=== PATIENT | female | born 1980 | race Caucasian/White ===

== ENCOUNTER 2025-03-08 16:08 | Emergency (ER) | payer SELFPAY ==
[2025-03-08 16:19] VITALS: BP 161/118; PULSE 80; TEMP 36.8; O2SAT 98; BMI 31.6
--- OUTSIDE RECORDS SUMMARY | 2025-03-08 16:21 | XMS_ITS | Clinical Summary ---
Author Organization [facility] Address [address] [place] [address] Care Team Providers Care Strategic Partnership Specialist Name Role Phone Unavailable Primary Care Provider Unavailabl e Social History Tobacco Use Types Packs/Day Years Used Date Smoking Tobacco: Never Assessed Comments Unknown Sex and Gender Information Value Date Recorded Sex Assigned at Not on file Legal Sex Female 7:25 PM EDT Gender Identity Not on file Sexual Orientation Not on file Plan of Treatment Not on file
--- OUTSIDE RECORDS SUMMARY | 2025-03-08 16:21 | XMS_ITS | Data Portability ---
Author Organization MD - LORI PRADO MD, PHD, [facility] Address [address] [address] Assessment No assessment recorded. Plan of Treatment Reminders Order Date Submit Date Provider Last Modified By Organization Details Last Modified Time Details Appointments None recorded. Lab None recorded. Referral physical therapy back referral 2016 017 [email or web address] Not available 7 14:52:15 neurologis t referral 2016 JOHN Ramsey Ferrariuer, [address] [address], [place], [address], 7 18:35:14 Procedures None recorded. Surgeries None recorded. Imaging None recorded. Medication Orders Paxil 10 mg tablet 2018 019 INTERFACE Not available 9 15:03:27 Medrol (Dc) 4 mg tablets in a dose pack 2016 017 INTERFACE Not available 7 10:20:54 Patient TargetsNo targets recorded. Patient Instructions Encounter Date Encounter Id Patient Instructions Last Modified By Organization Details Last Modified Time 06/25/2017 [id number] acute low back pain: exercises [email or web address] Not available 07/01/2017 11:40:11 11/11/2018 [id number] recommend labwork wants to hld for now moises Not available 11/13/2018 09:58:44 Reason for Referral Referring Physician: Lori prado, Pediatric Medicine, Encounter Date: 06/25/2017 Neurologist Referral for Low back pain low back pain Referring Physician: Lori Mustafa, Pediatric Medicine, Encounter Date: 06/25/2017 Results Created Date Observation Date Name Description Value Unit Range Abnormal Flag Note LastModifiedBy Organization Detail LastModifiedTime 06/20/20 17 06/20/2017 XR, lumba r spine No observ ation record ed. [email or web address] [facility] [address] , [place], [address], 09/13/2017 12:06:34 09/02/19 18 09/02/2017 elect romyo gram No observ ation record ed. [email or web address] [facility] [address] [place], [address], 09/13/2017 12:07:03 Result Notes None recorded. Problems Name Problem SNOMED Code Status Onset Date Resolution Date Notes Provider Name and Address Organization Details Recorded Time Headache 06857718 Active 017 KARL atkinson MD, PHD 06/24/2017 16:12:31 Problem Notes None recorded. Procedures Surgical History Date Name Laterality Status Provider Name and Address Organization Details Recorded Time Tubal Ligation completed bernadette MUSTAFA MD, PHD 06/25/2017 16:45:23 Hat Renovator Surgery completed bernadette MUSTAFA MD, PHD 06/25/2017 16:45:31 Carpal tunnel surgery completed bernadette MUSTAFA MD, PHD 06/25/2017 16:45:40 Imaging Results None recorded. Procedure Notes None recorded. Medical Equipment None Reported. Allergies Allergen ID Allergen Name Allergen Category Reaction Reaction Severity Criticality Documentation Date Start Date Code Code System Note Provider Name and Address Organization Details Recorded Time 127 bacitraci n / neomycin / polymyxin B medicatio n rash Not available Not available 06/25/2017 64429 9 RxNorm KARL atkinson MD, PHD 7 16:41:37 Medications Name Sig Start Date Stop Date Status Note LastModified by Organization Details LastModified Time paroxetine 10 mg tablet TAKE 1 TABLET BY MOUTH EVERY DAY active Not Available Not Available No t Available ibuprofen 200 mg capsule Take 1 capsule every 6 hours by oral route. active Not Available Not Available No t Available Medrol (Dc) 4 mg tablets in a dose pack Take 1 dose pk by oral route. 2016 active Not Available Not Available Not Avai lable buprenorphine 8 mg-naloxone [address] FILMS UNDER THE TONGUE ONCE DAILY active Not Available Not Available No t Available Vitals Date Recorded Body height Heart rate Respiratory rate Body temperature Body mass index (BMI) Body weight Oxygen saturation Oxygen saturation in Arterial blood by Pulse oximetry Systolic And Diastolic Provider Name and Address Organization Details Last Updated DateTime 9 177.8 cm 106 /min 16 /min 98.3 [degF] 27.3 kg/m2 43172.5 5 g 98 % 98 % 128/80 mm[Hg] melanie MUSTAFA MD, PHD 9 15:23:05 Date Recorded Body height Body mass index (BMI) Body weight Respiratory rate Heart rate Oxygen saturation Oxygen saturation in Arterial blood by Pulse oximetry Systolic And Diastolic Provider Name and Address Organization Details Last Updated DateTime 7 177.8 cm 32.3 kg/m2 232773. 28 g 16 /min 80 /min 98 % 98 % 118/72 mm[Hg] bernadette MUSTAFA MD, PHD 7 16:41:07 Social History Question Answer Notes LastModified by Organizat ion Details LastModified Time Tobacco Smoking Status Current Every Day Smoker Not Available [facility] 06/14/2020 03:54:38 Do You Have An Advance Directive? No [id number] Information not available 06/14/2020 What Is Your Level Of Caffeine Consumption? None [id number] Information not available 06/14/2020 How Much Tobacco Do You Chew? None [id number] Information not available 06/14/2020 Which Illicit Or Recreational Drugs Have You Used? No [id number] Information not available 06/14/2020 Education 12 [email or web address] Information n ot available 06/25/2017 Are There Any Guns Present In Your Home? No [id number] Information not available 06/14/2020 Hard Of Hearing Or Deaf In One Or Both Ears? No [email or web address] Information not available 06/25/2017 Legally Blind In One Or Both Eyes? No [email or web address] Information no t available 06/25/2017 Live Alone Or With Others? With Others [email or web address] Information not available 06/25/2017 What Was The Date Of Your Most Recent Tobacco Screening? 11/11/2018 [id number] Information not available 06/14/2020 How Many Children Do You Have? 2 _8 Information not available 06/14/2020 Performs Monthly Self-breast Exam? No [email or web address] Information no t available 06/25/2017 Seat Belts Used Routinely Yes [email or web address] Information not available 06/25/2017 Are You Sexually Active? No [id number] Information not available 06/14/2020 Smoke Alarm In Home Yes [email or web address] Information not available 06/25/2017 At What Age Did You Start Smoking Tobacco? 16 [id number] Information not available 06/14/2020 Are You Passively Exposed To Smoke? Yes [email or web address] Information no t available 06/25/2017 How Much Tobacco Do You Smoke? 0.5 PPD [id number] Information not available 06/14/2020 General Stress Level Medium [email or web address] Information not available 06/25/2017 Do You Use Sunscreen Routinely? No [id number] Information not available 06/14/2020 How Many Years Have You Smoked Tobacco? 20 [id number] Information not available 06/14/2020 Sex: Unknown Functional Status Question Answer Note LastModified by Organizat ion Details LastModified Time What is your level of alcohol consumption? None [id number] Information not available 06/14/2020 Are you currently employed? Yes [id number] Information not available 06/14/2020 Are you able to walk? YESWOREST [id number] Information not available 06/14/2020 Are you able to care for yourself independently? 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 Occasional [id number] Information not available 06/14/2020 Mental Status None recorded. Family History Relationship Description Onset Age of this Age Resolved Age Notes LastModified by Organization Details LastModified Time Father No current problems or disability [email or web address] Not available 16:43:33 Mother No current problems or disability [email or web address] Not available 16:43:33 Medical History Condition Response Coronary Artery Disease N Gout N Other N Kidney Stones N Blood Diseases N Hyperthyroidism N Blood Transfusion N Breast Cancer N Hospital Admission Other Than N COPD N Depression N Hypothyroidism N Lung Disease N Developmental or Behavioral Disorders N Defects or Inherited Disease N Breast Problem N Difficulty Swallowing N Anesthesia Complications N Meniere's disease N Anxiety Disorder N Muscle, Joint, or Bone Problems N Obesity N Vision or Eye Problems N Arthritis N Head Injury/Concussion N Infertility N Polyps N Mental Disorder N Congenital Anomalies N Cancer N Stroke N Varicosities N Endometriosis N Bladder or Kidney Problems N High Cholesterol N Liver Disease N Headaches N Fibromyalgia N Kidney Disease N Allergies/Hayfever N Heart Problems N Ear or Hearing Problems N Hospitalizations N Thyroid Problems N GI Problems N ADD/ADHD N Eating Disorder N Skin Problems N Anemia N MRSA exposure N Constipation N Mental Illness N Diabetes N Ovarian Cancer N Bedwetting N Seizures/Epilepsy N Tuberculosis N AIDS/HIV N Congestive Heart Failure (CHF) N Eczema N Diverticulitis N Abuse/Domestic Violence N Asthma N Reflux/GERD N Hepatitis N Heart Disease N Pulmonary Embolism N Chronic Ear Infections N Hypertension N Pre-Eclampsia N Chicken Pox N Autism Spectrum Disorder (ASD) N Osteoporosis N Thrombophilias N Gynecological HistoryNo gynecological history recorded. Obstetrics History GPAL:G 0 P 0 0 0 0 Immunizations Vaccine Type Date Status Note Provider Nam e and Address Organization Details Recorded Time Influenza, split virus, quadrivalent, PF 06/25/2017 completed Not Available [facility] 0 02:56:39 Past Encounters Encounter ID Performer Location Encounter Start Date Encounter Closed Date Diagnosis/Indication Diagnosis SNOMED-CT Code Diagnosis ICD10 Code Diagnosis Note [id number] Lori Oconnor rn, MD Main Office [address] [place] [address] 06/25/2017 16:32:26 06/25/2017 17:22:42 Administration of influenza vaccine 57179508 Z23 Low back pain 219102318 M54.5 [id number] Lroi Oconnor rn, MD Main Office [address] [place] [address] 11/11/2018 14:07:57 11/11/2018 15:28:53 Generalized anxiety disorder 45821100 F41.1 Sleep reinaldo vito disturbance 47110862 G47.9 Fatigue 52644105 R53.83 Health Concerns Section Related Observation LastModified by Organization Detai ls LastModified Time None Recorded Concern Status LastModified by Organization Details LastModified Time None Recorded Advance Directives Directive N: Payers Insurance Date Sequence Insurance Name Policy Number Policy Jay Covered Member ID Jay Member ID Guarantor Name 03/11/2023 1 [employer] Deana Sanchez [id number] Deana Sanchez OBGyn Episode No OBEpisode recorded.
--- OUTSIDE RECORDS SUMMARY | 2025-03-08 16:21 | XMS_ITS | Encounter Summary ---
Author Organization [employer] Address [facility] [place]-[id number] [address] [place] [address] Care Team Providers Care Videotape Operator Name Role Phone Jocelyne Melara MD Primary Care Provider + Encounter Details Date Type Department Care Team (Late st Contact Info) Description 11/18/2020 Telephone [facility] Obst[facility]ne[facility] [address] [facility] [address] Stephie Elizabeth MA Social History Tobacco Use Types Packs/Day Years Used Date Smoking Tobacco: Every Day Cigarettes Smokeless Tobacco: Never Alcohol Use Standard Drinks/Week Comments Not Currently 0 (1 standard drink = 0.6 oz pur e alcohol) Childcare Answer Date Recorded Childcare Unknown 01/21/2019 Employment Answer Date Recorded Employment Unknown 01/21/2019 Purpose - Life Answer Date Recorded Purpose and direction in life Unknown Comments No Sex and Gender Information Value Date Recorded Sex Assigned at Not on file Legal Sex Female 11:28 AM EDT Gender Identity Not on file Sexual Orientation Not on file documented as of this encounter Miscellaneous Notes * Telephone Encounter - Stephie Elizabeth MA - 11/18/2020 11:48 AM EDT Patient's letter that was sent on 11/08/20 came back to our office with a return to sender address. documented in this encounter Plan of Treatment Not on file documented as of this encounter Visit Diagnoses Not on filedocumented in this encounter Care Teams Videotape Operator Relationship Specialty Start Date End Date Jocelyne Melara MD PCP - General Pediatrics 09/02/17 documented as of this encounter
--- NOTE | 2025-03-08 16:31 | ED_ITS ---
HPI HPI - General Adult General Chief complaint: Dental/Oral Stated complaint: DENTAL PAIN Time Seen by Provider: 03/08/25 16:22 Source: patient Mode of arrival: walk-in History of Present Illness HPI narrative: 44-year-old female presents to the emergency department for toothache. She is complaining of pain to the left lower dentition, her most posterior tooth. It is severe and continue and she does not have a dentist. Related Data Home Medications ?Medication ?Instructions ?Recorded ?Confirmed buprenorphine 12 mg-naloxone 3 mg film 03/08/25 sublingual film buspirone 5 mg tablet mg 03/08/25 sertraline 25 mg tablet mg 03/08/25 trazodone 50 mg tablet mg 03/08/25 Previous Rx's ?Medication ?Instructions ?Recorded ibuprofen 800 mg tablet 800 mg PO Q8H PRN pain #20 t abs 03/08/25 penicillin V potassium 250 mg 250 mg PO QID 10 days #4 0 tabs 03/08/25 tablet Allergies Allergy/AdvReac Type Severity Reaction Status Date / Time miconazole (From Neosporin Allergy Rash Verified 03/08/25 16:18 AF) Opioid HPI Opioid Management Most Recent Opioid Data: Last Pain Scale 10 Today, 16:40 Last MAR Pain Assessment Today, 16:40 Review of Systems ROS Narrative A ten point review of systems is negative except as noted above. PFSH PFSH Social History Little interest or pleasure in doing things: not at all Feeling down, depressed, or hopeless: not at all Exam Narrative Exam Narrative: Nurses note and vital signs reviewed and patient is not hypoxic. General: The patient appears uncomfortable and is tearful and is rocking Skin: Warm, dry, no pallor noted. There is no rash noted. Head: Normocephalic, atraumatic Eye: Normal conjunctiva, no drainage Ears, Nose, Mouth, and Throat: oral mucosa is moist. Nares patent. No facial swelling or erythema. Dental caries noted in the left lower dentition. No bleeding or pus present. No swelling to the floor of her mouth. No localized gingival swelling Cardiovascular: Regular Rate and Rhythm Respiratory: Patient is in no distress, no accessory muscle use, lungs are clear to auscultation, no wheezing, rales or rhonchi Back: non-tender GI: Soft and nontender Musculoskeletal: The patient has no evidence of calf tenderness, no pitting edema, symmetrical pulses noted bilaterally Neurological: A&O, normal speech Psychiatric: Cooperative Constitutional Vital Signs, click to edit/add: Last Vital Signs Temp 98.2 F 03/08/25 16:19 Pulse 80 03/08/25 16:19 Resp 18 03/08/25 16:19 BP 161/118 H 03/08/25 16:19 Pulse Ox 98 03/08/25 16:19 O2 Del Method Room Air 03/08/25 16:19 Course Vital Signs Vital signs: Vital Signs Temperature 98.2 F 03/08/25 16:19 Pulse Rate 80 03/08/25 16:19 Respiratory Rate 18 03/08/25 16:19 Blood Pressure 161/118 H 03/08/25 16:19 Pulse Oximetry 98 03/08/25 16:19 Oxygen Delivery Method Room Air 03/08/25 16:19 Temperature 98.2 F 03/08/25 16:19 Pulse Rate 80 03/08/25 16:19 Respiratory Rate 18 03/08/25 16:19 Blood Pressure 161/118 H 03/08/25 16:19 Pulse Oximetry 98 03/08/25 16:19 Oxygen Delivery Method Room Air 03/08/25 16:19 Medical Decision Making MDM Narrative Medical decision making narrative: She is given IM Toradol and penicillin here and prescribed ibuprofen and penicillin. She is on buprenorphine so we will avoid narcotics. Treatment diagnosis and follow-up were discussed with the patient. She was given dental list to follow-up Differential Diagnosis Differential Diagnosis: Dental caries, odontogenic, dental abscess Discharge Plan Discharge Chief Complaint: Dental/Oral Clinical Impression: Toothache, Dental caries Patient Disposition: Home, Self-Care Time of Disposition Decision: 16:28 Condition: Good Mode of Transportation: Private Vehicle Prescriptions / Home Meds: New penicillin V potassium 250 mg tablet 250 mg PO QID 10 Days Qty: 40 0RF ibuprofen 800 mg tablet 800 mg PO Q8H PRN (Reason: pain) Qty: 20 0RF No Action buspirone 5 mg tablet trazodone 50 mg tablet sertraline 25 mg tablet buprenorphine-naloxone 12-3 mg film Print Language: Icelandic Instructions: Toothache (ED) Additional Instructions: Follow-up with dentistry, list provided Referrals: Physician,Non-Staff, MD [Primary Care Provider] - 1 week
[2025-03-08] MEDS: PENICILLIN V POTASSIUM 250 MG TABLET PO (16:40)
[2025-03-08] MEDS: KETOROLAC TROMETHAMINE 60 MG/2 ML VIAL IM (16:40)
== END 2025-03-08 17:17 | disposition home or self-care (01) ==
PROVIDERS: Emergency Provider Emergency Medicine
DX: K08.89 Other specified disorders of teeth and supporting structures (principal); K02.9 Dental caries, unspecified
CPT/HCPCS: 96372; 99284; J1885

== ENCOUNTER 2025-05-03 11:19 | Emergency (ER) | payer SELFPAY ==
--- OUTSIDE RECORDS SUMMARY | 2025-05-03 11:24 | XMS_ITS | Clinical Summary ---
Author Organization [facility] Address [address] [place] [address] Care Team Providers Care Global Professional Name Role Phone Unavailable Primary Care Provider [...]
--- OUTSIDE RECORDS SUMMARY | 2025-05-03 11:24 | XMS_ITS | Encounter Summary ---
Author Organization [employer] Address [facility] [id number] [address] [place] [address] Care Team Providers Care Cleat Feeder Name Role Phone Jocelyne Melara MD Primary Care Provider + Encounter Details Date Type Department Care Team (Late st Contact Info) Description 11/18/2020 Telephone [facility] Ob[facility] [address] [facility] [address] Stephie Elizabeth MA Social History [...] on filedocumented in this encounter Care Teams Cleat Feeder Relationship Specialty Start Date End Date Jocelyne Melara MD PCP - General Pediatrics 09/02/17 documented as of this encounter
[2025-05-03 11:26] VITALS: BP 138/91; PULSE 82; TEMP 36.6; O2SAT 97; BMI 31.6
[2025-05-03] MEDS: BENZOCAINE 30 ML, lidocaine HCL 15 ML MM (11:51)
[2025-05-03] MEDS: AMOXICILLIN/POT CLAV 875-125 MG TABLET 1 TAB PO (11:52)
--- NOTE | 2025-05-03 11:56 | ED.DENTAL1 ---
HPI - Dental/Oral General Chief complaint: Dental/Oral Stated complaint: DENTAL PAIN Time Seen by Provider: 05/03/25 11:38 Source: patient Mode of arrival: walk-in History of Present Illness HPI Narrative: The patient presented to us with a dental pain that started almost 2 days ago she has had a history of multiple dental issues and she is supposed to see her dentist as outpatient, but since the pain started the patient wanted to be started on treatment before it gets worse No difficulty swallowing no other concerns Related Data Home Medications ?Medication ?Instructions ?Recorded ?Confirmed buprenorphine 12 mg-naloxone 3 mg 1 film sublingual Q24H 03/08/25 05/03/25 sublingual film buspirone 5 mg tablet 5 mg PO DAILY 03/08/25 05/03/25 trazodone 50 mg tablet 50 mg PO BEDTIME 03/08/25 05/03/25 Previous Rx's ?Medication ?Instructions ?Recorded amoxicillin 875 mg-potassium 1 tab PO Q12H #20 tabs 05/03/25 clavulanate 125 mg tablet naproxen 375 mg tablet 375 mg PO Q12H PRN pain #20 tabs 05/03/25 Allergies Allergy/AdvReac Type Severity Reaction Status Date / Time miconazole (From Neosporin Allergy Rash Verified 05/03/25 11:24 AF) Review of Systems ROS Status of ROS 10 or more systems reviewed and unremarkable except as noted in history and below PFSH PFSH Social History Little interest or pleasure in doing things: not at all Feeling down, depressed, or hopeless: not at all Exam Narrative Exam Narrative: Dental exam: Patient dental examination showed that she have a very bad dental hygiene with multiple decayed tooth including missing tooth #14 as well as the patient tooth #13 and surrounded with a mildly inflamed gum with no pus or abscess or any swelling of the patient have patent airway with no difficulty swallowing or speaking Nurses notes and vital signs reviewed and patient is not hypoxic. General: Well-appearing and in no apparent distress. Skin: Warm, dry, no pallor noted. No rash. Head: Normocephalic, atraumatic. Constitutional Vital Signs, click to edit/add: Last Vital Signs Temp 97.9 F 05/03/25 11:26 Pulse 82 05/03/25 11:26 Resp 16 05/03/25 11:26 BP 138/91 05/03/25 11:26 Pulse Ox 97 05/03/25 11:26 O2 Del Method Room Air 05/03/25 11:26 Course Vital Signs Vital signs: Vital Signs Temperature 97.9 F 05/03/25 11:26 Pulse Rate 82 05/03/25 11:26 Respiratory Rate 16 05/03/25 11:26 Blood Pressure 138/91 05/03/25 11:26 Pulse Oximetry 97 05/03/25 11:26 Oxygen Delivery Method Room Air 05/03/25 11:26 Temperature 97.9 F 05/03/25 11:26 Pulse Rate 82 05/03/25 11:26 Respiratory Rate 16 05/03/25 11:26 Blood Pressure 138/91 05/03/25 11:26 Pulse Oximetry 97 05/03/25 11:26 Oxygen Delivery Method Room Air 05/03/25 11:26 MDM - Dental/Oral MDM Narrative Medical decision making narrative: Patient presentation is mostly secondary to dental infection secondary to dental decay Patient was started on Augmentin as well as supportive care of local pain medication and discharged home with naproxen and Augmentin The patient is to follow up with primary care physician in next 2-3 days or to return to the emergency department should any of the signs or symptoms worsen or new symptoms develop. The patient agrees with the following Diagnosis and Treatment plan and the patient will be discharged home. Discharge Plan Discharge Chief Complaint: Dental/Oral Clinical Impression: Toothache, Dental caries Patient Disposition: Home, Self-Care Time of Disposition Decision: 11:41 Condition: Good Mode of Transportation: Private Vehicle Prescriptions / Home Meds: New amoxicillin-pot clavulanate 875-125 mg tablet 1 tab PO Q12H Qty: 20 0RF naproxen 375 mg tablet 375 mg PO Q12H PRN (Reason: pain) Qty: 20 0RF No Action buspirone 5 mg tablet 5 mg PO DAILY trazodone 50 mg tablet 50 mg PO BEDTIME buprenorphine-naloxone 12-3 mg film 1 film sublingual Q24H Print Language: Bruneian Instructions: Toothache (ED) Referrals: Physician,Non-Staff, MD [Primary Care Provider] - 1 week Discharge Date/Time: 05/03/25 11:54
== END 2025-05-03 11:54 | disposition home or self-care (01) ==
PROVIDERS: Emergency Provider Emergency Medicine
DX: K02.9 Dental caries, unspecified (principal); K08.89 Other specified disorders of teeth and supporting structures
CPT/HCPCS: 99283

== ENCOUNTER 2025-05-07 01:08 | Emergency (ER) | payer SELFPAY ==
[2025-05-07 01:13] VITALS: BP 149/98; PULSE 95; TEMP 36.9; O2SAT 97; BMI 31.6
--- NOTE | 2025-05-07 01:28 | ED.DENTAL1 ---
HPI - Dental/Oral General Chief complaint: Dental/Oral Stated complaint: TOOTH PAIN Time Seen by Provider: 05/07/25 01:24 Source: patient Mode of arrival: walk-in Limitations: no limitations History of Present Illness HPI Narrative: dental pain. Seen here earlier this week and prescribed augmentin. Presents now due to continued pain. No fever or facial swelling Related Data Home Medications ?Medication ?Instructions ?Recorded ?Confirmed buprenorphine 12 mg-naloxone 3 mg 1 film sublingual Q24H 03/08/25 05/07/25 sublingual film buspirone 5 mg tablet 5 mg PO DAILY 03/08/25 05/07/25 trazodone 50 mg tablet 50 mg PO BEDTIME 03/08/25 05/07/25 Previous Rx's ?Medication ?Instructions ?Recorded amoxicillin 875 mg-potassium 1 tab PO Q12H #20 tabs 05/03/25 clavulanate 125 mg tablet naproxen 375 mg tablet 375 mg PO Q12H PRN pain #20 tabs 05/03/25 Allergies Allergy/AdvReac Type Severity Reaction Status Date / Time miconazole (From Neosporin Allergy Rash Verified 05/07/25 01:20 AF) Review of Systems ROS Status of ROS 10 or more systems reviewed and unremarkable except as noted in history and below PFSH PFSH Social History Little interest or pleasure in doing things: not at all Feeling down, depressed, or hopeless: not at all Exam Constitutional Vital Signs, click to edit/add: Last Vital Signs Temp 98.5 F 05/07/25 01:13 Pulse 95 H 05/07/25 01:13 Resp 16 05/07/25 01:13 BP 149/98 H 05/07/25 01:13 Pulse Ox 97 05/07/25 01:13 O2 Del Method Room Air 05/07/25 01:13 Common normals: no apparent distress, average body habitus, oriented x3, no limitations, healthy appearing, alert and well nourished [facility] Common normals: normocephalic and head/scalp atraumatic Other: left upper molar caries/erythema Eye Common normals: EOMs intact bilaterally and conjunctivae normal Respiratory Common normals: normal respiratory effort, no retractions, no use of accessory muscles and clear to auscultation bilaterally Cardio Common normals: regular rate, regular rhythm, S1 normal heart sound and S2 normal heart sound Extremity Common normals: normal to inspection and full ROM Neuro Common normals: oriented x3, CN's II-XII intact bilaterally, moves all extremities and no focal motor deficits Psych Appearance: grossly normal Course Vital Signs Vital signs: Vital Signs Temperature 98.5 F 05/07/25 01:13 Pulse Rate 95 H 05/07/25 01:13 Respiratory Rate 16 05/07/25 01:13 Blood Pressure 149/98 H 05/07/25 01:13 Pulse Oximetry 97 05/07/25 01:13 Oxygen Delivery Method Room Air 05/07/25 01:13 Temperature 98.5 F 05/07/25 01:13 Pulse Rate 95 H 05/07/25 01:13 Respiratory Rate 16 05/07/25 01:13 Blood Pressure 149/98 H 05/07/25 01:13 Pulse Oximetry 97 05/07/25 01:13 Oxygen Delivery Method Room Air 05/07/25 01:13 MDM - Dental/Oral MDM Narrative Medical decision making narrative: presents with continued pain from dental abscess that is not improving with Augmentin. Patient switched to Clindamycin and she will follow up with her dentist in 2-3 days Discharge Plan Discharge Chief Complaint: Dental/Oral Clinical Impression: Dental abscess Patient Disposition: Home, Self-Care Prescriptions / Home Meds: No Action buspirone 5 mg tablet 5 mg PO DAILY trazodone 50 mg tablet 50 mg PO BEDTIME buprenorphine-naloxone 12-3 mg film 1 film sublingual Q24H amoxicillin-pot clavulanate 875-125 mg tablet 1 tab PO Q12H Qty: 20 0RF naproxen 375 mg tablet 375 mg PO Q12H PRN (Reason: pain) Qty: 20 0RF Print Language: [place] Islander Instructions: Dental Abscess (ED) Referrals: Physician,Non-Staff, MD [Primary Care Provider] - 1 week
[2025-05-07] MEDS: CLINDAMYCIN HCL 150 MG CAPSULE 300 MG PO (01:54)
[2025-05-07] MEDS: BENZOCAINE 30 ML, lidocaine HCL 15 ML MM (01:54)
== END 2025-05-07 01:59 | disposition home or self-care (01) ==
PROVIDERS: Emergency Provider Internal Medicine
DX: K04.7 Periapical abscess without sinus (principal)
CPT/HCPCS: 99283